=== PATIENT | male | born 1980 | race Caucasian/White ===

== ENCOUNTER → 2018-10-22 | Day surgery (SDC) | payer OTHER ==
[2018-10-15 10:17] LABS: BASOPHILS % 0.3 % (0.0-1.0); EOSINOPHILS # (AUTO) 0.2 (0.0-0.4); EOSINOPHILS % 2.2 % (0.0-6.0); HEMATOCRIT 47.2 % (38.2-49.6); HEMOGLOBIN 16.6 g/dL (14.0-18.0); LYMPHOCYTES # (AUTO) 3.1 (1.0-3.2); LYMPHOCYTES % 34.3 % (18.0-39.1); MEAN CORPUSCULAR HEMOGLOBIN 31.9 pg (28-32); MEAN CORPUSCULAR HGB CONC 35.2 g/dL (31-35); MEAN CORPUSCULAR VOLUME 90.6 fL (81-99); MONOCYTES # (AUTO) 0.9 (0.2-0.8); MONOCYTES % 10.3 % (4.4-11.3); NEUTROPHILS # (AUTO) 4.7 (2.1-6.9); NEUTROPHILS % 52.7 % (38.7-80.0); PLATELET COUNT 209 x10e3/uL (140-360); RED BLOOD COUNT 5.21 x10e6/uL (4.3-5.7); RED CELL DISTRIBUTION WIDTH 12.1 % (11.7-14.4)
[~2018-10-22] MED LIST: BUPIVACAINE 0.25% 30ML SDV INJ ONE; BUPIVACAINE/EPINEPHRINE 0.25% 10 ML SDV INJ ONE; CRESTOR10 MG PO; DEXAMETHASONE SOD PHOS INJ 4 MG/ML VIAL ONE; FENTANYL CITRATE/PF 100MCG/2 ML INJ ONE; HYDROCODONE/APAP 7.5MG-325MG 1 EA TAB ONE; LIDOCAINE HCL 2% LOCAL INJ 5 ML SDV VIAL INJ ONE; MIDAZOLAM HCL 2 MG/2 ML VIAL ONE; MORPHINE SULFATE INJ 4 MG/ML INJ ONE; ONDANSETRON HCL INJ 2 MG/ML VIAL ONE; PROPOFOL IV EMULSION 10 MG/ML 20 ML VIAL ONE; ROCURONIUM BROMIDE 10 MG/ML 5ML VIAL ONE; SEVOFLURANE INHAL SOLN 250 ML PEN BTL ONE; ULORIC80 MG PO
--- OUTSIDE RECORDS SUMMARY | 2018-10-22 09:29 | XMS REPORT | Continuity of Care Document ---
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 Luque MD [facility] Call back [id number] 03/27/2016 03/27/2016 2.16.840.1.997736.4.391.11.99092 Bam Luque MD [facility] Call back [id number] 03/27/2016 03/27/2016 2.16.840.1.507611.4.391.11.36267 Bam Luque MD [facility] Call back [id number] 03/27/2016 03/27/2016 2.16.840.1.731791.4.391.11.91421 Bam Luque MD [facility] Call back [id number] 03/27/2016 03/27/2016 2.16.840.1.914172.4.391.11.07004 Bam Luque MD [facility] Call back [id number] 03/27/2016 03/27/2016 2.16.840.1.449962.4.391.11.99427 Bam Luque MD [facility] Call back [id number] 03/27/2016 03/27/2016 2.16.840.1.255256.4.391.11.84241 Bam Luque MD [facility] Blood pressure [id number] 03/28/2016 03/28/2016 2.16.840.1.191348.4.391.11.32258 Bam Luque MD [facility] Blood pressure [id number] 03/28/2016 03/28/2016 2.16.840.1.433999.4.391.11.37555 Bam Luque MD [facility] Blood pressure [id number] 03/28/2016 03/28/2016 2.16.840.1.656775.4.391.11.55951 Bam Luque MD [facility] Blood pressure [id number] 03/28/2016 03/28/2016 2.16.840.1.670320.4.391.11.01008 Bam Luque MD [facility] Blood pressure [id number] 03/28/2016 03/28/2016 2.16.840.1.398801.4.391.11.61010 Bam Luque MD [facility] Blood pressure [id number] 03/28/2016 03/28/2016 2.16.840.1.541089.4.391.11.06069 Bam Luque MD [facility] Blood pressure [id number] 03/28/2016 03/28/2016 2.16.840.1.147514.4.391.11.23364 Bam Luque MD [facility] Blood pressure [id number] 03/28/2016 03/28/2016 2.16.840.1.904907.4.391.11.00523 Bam Luque MD [facility] Blood pressure [id number] 03/28/2016 03/28/2016 2.16.840.1.690103.4.391.11.32731 Bam Luque MD [facility] Blood pressure [id number] 03/28/2016 03/28/2016 2.16.840.1.431001.4.391.11.78603 Bam Luque MD [facility] Other [id number] 04/16/2016 04/16/2016 2.16.840.1.581033.4.391.11.22674 Bam Luque MD [facility] Other [id number] 04/16/2016 04/16/2016 2.16.840.1.261968.4.391.11.66251 Bam Luque MD [facility] Other [id number] 04/16/2016 04/16/2016 2.16.840.1.698255.4.391.11.59863 Bam Luque MD [facility] Other [id number] 04/16/2016 04/16/2016 2.16.840.1.168384.4.391.11.30187 Bam Luque MD [facility] Other [id number] 04/16/2016 04/16/2016 2.16.840.1.578117.4.391.11.72127 Bam Luque MD [facility] Other [id number] 04/16/2016 04/16/2016 2.16.840.1.012398.4.391.11.27444 Bam Luque MD [facility] Other [id number] 04/16/2016 04/16/2016 2.16.840.1.010709.4.391.11.60346 Bam Luque MD [facility] Other [id number] 04/16/2016 04/16/2016 2.16.840.1.481621.4.391.11.73639 [facility] Outpatient [id number] Hunter Hernandez 04/19/2016 04/20/2016 [facility] OP Therapy Patients [id number] Hunter Tannern 05/12/2016 06/11/2016 [facility] Bam Luque MD [facility] Refill [id number] 05/13/2016 05/13/2016 2.16.840.1.479766.4.391.11.98521 Bam Luque MD [facility] Refill [id number] 05/13/2016 05/13/2016 2.16.840.1.384424.4.391.11.99163 Bam Luque MD [facility] Refill [id number] 05/13/2016 05/13/2016 2.16.840.1.550334.4.391.11.49989 Bam Luque MD [facility] Refill [id number] 05/13/2016 05/13/2016 2.16.840.1.986807.4.391.11.04652 Bam Luque MD [facility] Refill [id number] 05/13/2016 05/13/2016 2.16.840.1.949592.4.391.11.78732 Bam Luque MD [facility] Refill [id number] 05/13/2016 05/13/2016 2.16.840.1.362089.4.391.11.12806 Bam Luque MD [facility] follow up labs [id number] 07/17/2016 07/17/2016 2.16.840.1.063444.4.391.11.01598 Bam Luque MD [facility] follow up labs [id number] 07/17/2016 07/17/2016 2.16.840.1.128432.4.391.11.70382 Bam Luque MD [facility] follow up labs [id number] 07/17/2016 07/17/2016 2.16.840.1.973894.4.391.11.28051 Bam Luque MD [facility] follow up labs [id number] 07/17/2016 07/17/2016 2.16.840.1.610800.4.391.11.36671 Bam Luque MD [facility] follow up labs [id number] 07/17/2016 07/17/2016 2.16.840.1.426998.4.391.11.00121 Bam Luque MD [facility] Blood pressure flow sheet [id number] 2016 2016 2.16.840.1.839210.4.391.11.83151 Bam Luque MD [facility] Blood pressure flow sheet [id number] 08/15/2016 08/15/2016 2.16.840.1.322193.4.391.11.48506 Bam Luque MD [facility] Blood pressure flow sheet [id number] 08/15/2016 08/15/2016 2.16.840.1.132758.4.391.11.09473 Bam Luque MD [facility] Blood pressure flow sheet [id number] 08/15/2016 08/15/2016 2.16.840.1.425813.4.391.11.91961 Bam Luque MD [facility] Labs [id number] 10/08/2016 10/08/2016 2.16.840.1.004472.4.391.11.11172 Bam Luque MD [facility] Labs [id number] 10/08/2016 10/08/2016 2.16.840.1.195569.4.391.11.34648 Bam Luque MD [facility] Labs [id number] 10/08/2016 10/08/2016 2.16.840.1.051878.4.391.11.28036 Bam Luque MD [facility] follow up labs [id number] 10/20/2016 10/20/2016 2.16.840.1.746450.4.391.11.83091 Bam Luque MD [facility] follow up labs [id number] 10/20/2016 10/20/2016 2.16.840.1.075049.4.391.11.48167 Bam Luque MD [facility] prescription [id number] 10/22/2016 10/22/2016 2.16.840.1.903003.4.391.11.06001 Procedures Procedure Code Date Perfomer Comments Source
--- OUTSIDE RECORDS SUMMARY | 2018-10-22 09:30 | XMS REPORT ---
Author Author Bam Luque [facility] eClinicalWorks Address Unknown Phone Unavailable Care Team Providers Care Intake Specialist Name Role Phone Bam Luque CP Unavailable Allergies, Adverse Reactions, Alerts Substance Reaction Event Type N.K.D.A. 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 Jul 13, 2012 Active Problem Hyperglycemia (Other abnormal blood chemistry) 790.6 Jul 13, 2012 Active Problem Left knee pain 719.46 Jul 13, 2012 Active Problem ADD (Attention 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 mention of hyperactivity) 314.00 Jun 29, 2012 Active Problem Hyperlipidemia E78.5 Active Problem Annual Physical (Routine general medical examination at health care facility) V70.0 Jun 29, 2012 Active Problem Tinea pedis B35.3 Active Problem Acute gouty arthropathy 274.01 Jun 23, 2012 Active Problem Onychomycosis B35.1 Active Problem Abnormal liver enzymes R74.8 Active Problem Fatty liver K76.0 Active Problem Essential hypertension I10 Active Problem Obesity (BMI 35.0-39.9 without comorbidity) E66.9 Active Problem Other chronic nonalcoholic liver disease 571.8 Active Problem Pain in joint, multiple sites 719.49 Active Assessment Mixed hyperlipidemia E78.2 Active Problem Mixed hyperlipidemia E78.2 Active Problem Nonspecific urethritis 099.40 Jun 04, 2012 Active Problem Obesity (BMI 35.0-39.9 without comorbidity) E66.01 Active Problem Hypertension I10 Active Problem Obesity E66.9 Active Problem Gout M10.9 Active Problem Fracture of one or more phalanges of foot 826 Sep 08, 2013 Active Problem Essential hypertension, benign 401.1 Active Problem Rhomboid muscle pain 729.1 Jul 25, 2013 Active Problem Pain in soft tissues of limb 729.5 Active Problem Essential hypertension, benign 401.1 March 02, 2014 Active Problem Night sweats (Generalized hyperhidrosis) 780.8 Active Problem Toe pain 729.5 Sep 08, 2013 Active Problem Mixed hyperlipidemia 272.2 Active Problem Night sweats (Generalized hyperhidrosis) 780.8 April 18, 2014 Active Problem ADD (Attention 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 mention of hyperactivity) 314.00 Active Problem Extreme obesity 278.01 April 03, 2014 Active Problem Acute gouty arthropathy 274.01 Active Problem 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 Problem BMI >30 (Morbid obesity) 278.01 Active Medications Medication Code System Code Instructions Start Date End Date Status Dosage Lisinopril [facility] [address]-47 10 MG Orally Once a day Aug 10, 2015 Active 1 tablet Crestor [facility] [address]-56 40 MG Orally Once a day Jul 17, 2016 Active 1 tablet Zetia [facility] [address]-73 10 MG Orally Once a day February 10, 2017 Active 1 tablet Vimovo [facility] [address]-10 500-20 MG by mouth Twice a day with food for joint pain Jun 20, 2016 Active 1 tablet prn Vital Signs Date/Time: February 10, 2017 Weight 224 lbs Height 68 in Temperature 98.0 F Cardiac Monitoring Heart Rate 95 /min BMI 34.06 Index Results No Known Results Summary Purpose eClinicalWorks Submission
--- OUTSIDE RECORDS SUMMARY | 2018-10-22 09:30 | XMS REPORT | Summary of Care ---
Author Organization Unknown Address Unknown Phone Unavailable Encounter HQ Trinhntr_loni(ITZ) [id number] Date(s): 07/01/14 - 07/01/14 [facility] [address] Discharge Disposition: Home Physician Attending: Arsh Patel MD Physician_Referring: Arsh Patel MD Reason for Visit ABDOMINAL PAIN Problem List No data available for this section Allergies, Adverse Reactions, Alerts No data available for this section Medications No data available for this section Medications Administered During Your Visit No data available for this section Immunizations No data available for this section
--- OUTSIDE RECORDS SUMMARY | 2018-10-22 09:30 | XMS REPORT ---
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 Jul 13, 2012 Active Problem Toe pain 729.5 Sep 08, 2013 Active Problem ADD (Attention 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 mention of hyperactivity) 314.00 Jun 29, 2012 Active Problem Nonspecific urethritis 099.40 Jun 04, 2012 Active Problem Essential hypertension, benign 401.1 March 02, 2014 Active Problem Other enthesopathy of knee 726.69 Jul 13, 2012 Active Problem Acute gouty arthropathy 274.01 Jun 23, 2012 Active Problem Annual Physical (Routine general medical examination at health care facility) V70.0 Jun 29, 2012 Active Problem Fracture of one or more phalanges of foot 826 Sep 08, 2013 Active Problem Mixed hyperlipidemia 272.2 Active Problem Nonspecific abnormal results of liver function study 794.8 Jul 13, 2012 Active Problem Tinea pedis B35.3 Active Problem Hyperglycemia (Other abnormal blood chemistry) 790.6 Jul 13, 2012 Active Problem Onychomycosis B35.1 Active Problem Fatty liver K76.0 Active Problem Abnormal liver enzymes R74.8 Active Problem Obesity (BMI 35.0-39.9 without comorbidity) E66.9 Active Problem Obesity E66.9 Active Problem Acute gouty arthropathy 274.01 Active Problem Mixed hyperlipidemia 272.2 February 25, 2013 Active Problem Mixed hyperlipidemia E78.2 Active Problem Night sweats (Generalized hyperhidrosis) 780.8 April 18, 2014 Active Problem Hyperlipidemia E78.5 Active Problem Hypertension I10 Active Problem Gout M10.9 Active Problem Obesity (BMI 35.0-39.9 without comorbidity) E66.01 Active Problem Rhomboid muscle pain 729.1 Jul 25, 2013 Active Problem Night sweats (Generalized hyperhidrosis) 780.8 Active Problem Pain in joints 719.49 Jun 23, 2012 Active Problem Other chronic nonalcoholic liver disease 571.8 Active Problem Extreme obesity 278.01 April 03, 2014 Active Problem Pain in soft tissues of limb 729.5 Active Problem Fatty liver disease, nonalcoholic 571.8 Jul 27, 2012 Active Problem Pain in joint, multiple sites 719.49 Active Assessment Mixed hyperlipidemia E78.2 Active Problem BMI >30 (Morbid obesity) 278.01 Active Problem Left knee pain 719.46 Jul 13, 2012 Active Problem 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
--- OUTSIDE RECORDS SUMMARY | 2018-10-22 09:30 | XMS REPORT | Summary of Care ---
Author Author [facility] Address Unknown Phone Unavailable Encounter HQ Encntr_alias(FIN) [id number] Date(s): 05/12/16 - 06/10/16 [facility] Discharge Disposition: Home or Self Care Attending Physician: Hunter Hernandez Vital Signs No data available for this section Problem List Condition Effective Dates Status Health Status Informant Gout(Confirmed) Resolved HTN Resolved (hypertension)(Confi rmed) Hyperlipemia(Confirm Resolved ed) Allergies, Adverse Reactions, Alerts Substance Reaction Severity Status NKDA Active Medications No data available for this section Results No data available for this section Immunizations No data available for this section Procedures No data available for this section Social History Social History Type Response Smoking Status Never smoker; Exposure to Tobacco Smoke None; Cigarette Smoking Last 365 Days No; Reg Smoking Cessation Counseling No Assessment and Plan No data available for this section
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
--- OUTSIDE RECORDS SUMMARY | 2018-10-22 09:30 | XMS REPORT ---
Author Author Bam Luque [facility] eClinicalWorks Address Unknown Phone Unavailable Care Team Providers Care Underwriting Clerk Name Role Phone Bam Luque CP Unavailable Allergies No Known Allergies Problems Problem Type Condition Code Onset Dates Condition Status Problem Pain in joints 719.49 Jun 23, 2012 Active Problem Rhomboid muscle pain 729.1 Jul 25, 2013 Active Problem Fatty liver disease, nonalcoholic 571.8 Jul 27, 2012 Active Problem Mixed hyperlipidemia 272.2 February 25, 2013 Active Problem Other enthesopathy of knee 726.69 Jul 13, 2012 Active Problem Nonspecific abnormal results of liver function study 794.8 Jul 13, 2012 Active Problem Familial hyperlipoproteinemia, 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 Jul 13, 2012 Active Problem Hyperglycemia (Other abnormal blood chemistry) 790.6 Jul 13, 2012 Active Problem Left knee pain 719.46 Jul 13, 2012 Active Problem Acute gouty arthropathy 274.01 Active Problem ADD (Attention 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 mention of hyperactivity) 314.00 Jun 29, 2012 Active Problem Hyperlipidemia E78.5 Active Problem Annual Physical (Routine general medical examination at health care facility) V70.0 Jun 29, 2012 Active Problem Tinea pedis B35.3 Active Problem Fatty liver K76.0 Active Problem Onychomycosis B35.1 Active Problem Obesity (BMI 35.0-39.9 without comorbidity) E66.9 Active Problem Obesity E66.9 Active Problem Pain in joint, multiple sites 719.49 Active Problem Nonspecific urethritis 099.40 Jun 04, 2012 Active Problem Mixed hyperlipidemia E78.2 Active Problem Acute gouty arthropathy 274.01 Jun 23, 2012 Active Problem Hypertension I10 Active Problem Abnormal liver enzymes R74.8 Active Problem Gout M10.9 Active Problem Obesity (BMI 35.0-39.9 without comorbidity) E66.01 Active Problem Toe pain 729.5 Sep 08, 2013 Active Problem Mixed hyperlipidemia 272.2 Active Problem Fracture of one or more phalanges of foot 826 Sep 08, 2013 Active Problem Essential hypertension, benign 401.1 Active Problem Extreme obesity 278.01 April 03, 2014 Active Problem Other chronic nonalcoholic liver disease 571.8 Active Problem Essential hypertension, benign 401.1 March 02, 2014 Active Problem Night sweats (Generalized hyperhidrosis) 780.8 Active Problem BMI >30 (Morbid obesity) 278.01 Active Problem Night sweats (Generalized hyperhidrosis) 780.8 April 18, 2014 Active Problem ADD (Attention 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 mention of hyperactivity) 314.00 Active Problem Pain in soft tissues of limb 729.5 Active Problem 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
--- OUTSIDE RECORDS SUMMARY | 2018-10-22 09:30 | XMS REPORT ---
Author Author Bam Luque [facility] eClinicalWorks Address Unknown Phone Unavailable Care Team Providers Care Body Sander Name Role Phone Bam Luque CP Unavailable [...] in joint, multiple sites 719.49 Active Problem Mixed hyperlipidemia E78.2 Active Problem [...] Start Date End Date Status Dosage Lisinopril [facility] [address]-06 10 MG Orally Once a day Aug 10, 2015 Active 1 tablet Results No Known Results Summary Purpose eClinicalWorks Submission
--- OUTSIDE RECORDS SUMMARY | 2018-10-22 09:30 | XMS REPORT ---
Author Author Bam Luque [facility] eClinicalWorks Address Unknown Phone Unavailable Care Team Providers Care Superannuation Clerk Name Role Phone Bam Luque CP [...] Mixed hyperlipidemia 272.2 February 25, 2013 Active Assessment Abnormal liver enzymes R74.8 Active Problem Mixed hyperlipidemia E78.2 Active Problem Night sweats (Generalized hyperhidrosis) 780.8 April 18, 2014 Active Assessment Fatty liver K76.0 Active Problem Hyperlipidemia E78.5 Active Problem Hypertension [...] in joint, multiple sites 719.49 Active Assessment Hyperlipidemia E78.5 Active Problem BMI >30 (Morbid obesity) 278.01 Active Problem Left knee pain 719.46 Jul 13, 2012 Active Problem 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 Problem Essential hypertension, benign 401.1 Active Problem ADD (Attention 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 mention of hyperactivity) 314.00 Active Medications Medication Code System Code Instructions Start Date End Date Status Dosage Uloric [facility] 53060488598 80 MG Orally Once a day Active 1 tablet Crestor [facility] 11497399424 40 mg Orally Once a day Jul 17, 2016 Active 1 tablet Zetia [facility] 89236248147 10 mg Orally Once a day February 10, 2017 Active 1 tablet Vimovo [facility] 78475701500 500-20 MG by mouth Twice a day with food for joint pain Jun 20, 2016 Active 1 tablet prn Lisinopril [facility] 08181166080 10 MG Orally Once a day Aug 10, 2015 May 19, 2017 Active 1 tablet Vital Signs Date/Time: Aug 31, 2017 Weight 222.8 lbs Height 68 in Temperature 97.3 F BMI 33.87 Index Results No Known Results Summary Purpose eClinicalWorks Submission
--- OUTSIDE RECORDS SUMMARY | 2018-10-22 09:30 | XMS REPORT | Summary of Care ---
Author Organization Unknown Address Unknown Phone Unavailable Encounter HQ Trinhntr_loni([facility]) [id number] Date(s): 02/27/14 - 03/28/14 [facility] Discharge Disposition: Home Physician Attending: Hunter Hernandez Reason for Visit RIGHT SHOULDER(POST OP 02.09.14) Problem List No data available for this section Allergies, Adverse Reactions, Alerts No data available for this section Medications No data available for this section Medications Administered During Your Visit No data available for this section Immunizations No data available for this section
--- OUTSIDE RECORDS SUMMARY | 2018-10-22 09:30 | XMS REPORT | Summary of Care ---
Author Organization Unknown Address Unknown Phone Unavailable Encounter HQ Encntr_loni([facility]) [id number] Date(s): 03/31/14 - 04/29/14 [facility] Discharge Disposition: Home Physician Attending: Hunter Hernandez Reason for Visit RIGHT SHOULDER POST OP 4.08.15 Problem List No data available for this section Allergies, Adverse Reactions, Alerts No data available for this section Medications No data available for this section Medications Administered During Your Visit No data available for this section Immunizations No data available for this section
--- OUTSIDE RECORDS SUMMARY | 2018-10-22 09:30 | XMS REPORT ---
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 Problem Essential hypertension, benign 401.1 Active Problem ADD (Attention 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 mention of hyperactivity) 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 Active Medications Medication Code System Code Instructions Start Date End Date Status Dosage Cefdinir [facility] 95160514942 300 MG Orally daily January 26, 2018 February 05, 2018 Active 2 capsules Zetia [facility] 21436350240 10 mg Orally Once a day February 10, 2017 Active 1 tablet Lisinopril [facility] 39048178469 10 mg Orally Once a day Aug 10, 2015 Active 1 tablet Uloric [facility] 06807072354 80 MG Orally Once a day Active 1 tablet Crestor [facility] 58997588102 40 mg Orally Once a day Jul 17, 2016 Active 1 tablet Vimovo [facility] 90106979060 500-20 MG by mouth Twice a day with food for joint pain Jun 20, 2016 Active 1 tablet prn Vital Signs Date/Time: January 26, 2018 Weight 221.8 lbs Height 68 in Temperature 97.7 F Cardiac Monitoring Heart Rate 79 /min BMI 33.72 Index Results No Known Results Summary Purpose eClinicalWorks Submission
--- OUTSIDE RECORDS SUMMARY | 2018-10-22 09:30 | XMS REPORT | Summary of Care ---
Author Author [facility] Organization [facility] Address Unknown Phone Unavailable Encounter HQ Herbie_loni([facility]) [id number] Date(s): 04/19/16 - 04/19/16 [facility] [address] [place] [address]- Discharge Disposition: Home Attending Physician: Hunter Hernandez Referring Physician: Hunter Hernandez Vital Signs No data [...]
--- OUTSIDE RECORDS SUMMARY | 2018-10-22 09:30 | XMS REPORT | Summary of Care ---
Author Organization Unknown Address Unknown Phone Unavailable Encounter HQ Chanteller_loni([facility]) [id number] Date(s): 08/29/14 - 08/29/14 [facility] [address] Discharge Disposition: Home Physician Attending: Gerhard Bedolla MD Reason for Visit 720.2 Problem List No data available for this section Allergies, Adverse Reactions, Alerts No data available for this section Medications No data available for this section Medications Administered During Your Visit No data available for this section Immunizations No data available for this section
--- OUTSIDE RECORDS SUMMARY | 2018-10-22 09:30 | XMS REPORT ---
Author Author Bam Luque [facility] eClinicalWorks Address Unknown Phone Unavailable Care Team Providers Care Boxing Trainer Name Role Phone Bam Luque CP Unavailable [...] Nonspecific urethritis 099.40 Jun 04, 2012 Active Assessment Hyperlipidemia E78.5 Active Problem Mixed hyperlipidemia E78.2 Active Problem Acute gouty arthropathy 274.01 Jun 23, 2012 Active Assessment Abnormal liver enzymes R74.8 Active Problem Hypertension I10 Active Assessment Fatty liver K76.0 Active Problem Abnormal liver [...] Problem Night sweats (Generalized hyperhidrosis) 780.8 Active Assessment Hypertension I10 Active Problem BMI >30 (Morbid obesity) 278.01 Active Problem Night sweats (Generalized hyperhidrosis) 780.8 April 18, 2014 Active Problem ADD (Attention 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 mention of hyperactivity) 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 Active Problem Pain in soft tissues of limb 729.5 Active Problem 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 Medications Medication Code System Code Instructions Start Date End Date Status Dosage Crestor [facility] [address]-77 40 MG Orally Once a day Jul 17, 2016 May 19, 2017 Active 1 tablet Vimovo [facility] [address]-48 500-20 MG by mouth Twice a day with food for joint pain Jun 20, 2016 Active 1 tablet prn Zetia [facility] [address]-77 10 MG Orally Once a day February 10, 2017 May 19, 2017 Active 1 tablet Lisinopril [facility] [address]-50 10 MG Orally Once a day Aug 10, 2015 May 19, 2017 Active 1 tablet Uloric [facility] [address]-90 80 MG Orally Once a day Active 1 tablet Vital Signs Date/Time: May 26, 2017 Weight 230 lbs Height 68 in Temperature 97.5 F Cardiac Monitoring Heart Rate 86 /min BMI 34.97 Index Results No Known Results Summary Purpose eClinicalWorks Submission
--- OUTSIDE RECORDS SUMMARY | 2018-10-22 09:31 | XMS REPORT ---
Author Author Bam Luque Organization eClinicalWorks Address Unknown Phone Unavailable Care Team Providers Care Bricklayer Paving Brick Name Role Phone Bam Luque CP Unavailable Allergies, Adverse Reactions, Alerts Substance Reaction Event Type N.K.D.A. 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, 2012 Active Problem Essential hypertension, benign 401.1 March 02, 2014 Active Problem ADD (Attention 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 mention of hyperactivity) 314.00 Jun 29, 2012 Active Problem Other enthesopathy of knee 726.69 Jul 13, 2012 Active Problem Acute gouty arthropathy 274.01 Jun 23, 2012 Active Problem Annual Physical (Routine general medical examination at health care facility) V70.0 Jun 29, 2012 Active Problem Fracture of one or more phalanges of foot 826 Sep 08, 2013 Active Problem Nonspecific abnormal results of liver function study 794.8 Jul 13, 2012 Active Problem Tinea pedis B35.3 Active Problem Hyperglycemia (Other abnormal blood chemistry) 790.6 Jul 13, 2012 Active Problem Onychomycosis B35.1 Active Problem Night sweats (Generalized hyperhidrosis) 780.8 April 18, 2014 Active Problem Abnormal liver enzymes R74.8 Active Problem Hypertension I10 Active Problem Fatty liver K76.0 Active Problem Obesity (BMI 35.0-39.9 without comorbidity) E66.9 Active Problem Mixed hyperlipidemia E78.2 Active Problem Pain in soft tissues of limb 729.5 Active Problem Acute gouty arthropathy 274.01 Active Problem Umbilical hernia without obstruction and without gangrene K42.9 Active Problem Mixed hyperlipidemia 272.2 February 25, 2013 Active Assessment Mixed hyperlipidemia E78.2 Active Problem Obesity (BMI 35.0-39.9 without comorbidity) E66.01 Active Assessment Hypertension I10 Active Problem Hyperlipidemia E78.5 Active Assessment Umbilical hernia without obstruction and without gangrene K42.9 Active Problem Obesity E66.9 Active Problem Gout M10.9 Active Problem Pain in joints 719.49 Jun 23, 2012 Active Problem Other chronic nonalcoholic liver disease 571.8 Active Problem Toe pain 729.5 Sep 08, 2013 Active Problem Essential hypertension, benign 401.1 Active Problem Fatty liver disease, nonalcoholic 571.8 Jul 27, 2012 Active Problem Pain in joint, multiple sites 719.49 Active Problem Rhomboid muscle pain 729.1 Jul 25, 2013 Active Problem Night sweats (Generalized hyperhidrosis) 780.8 Active Problem Left knee pain 719.46 Jul 13, 2012 Active Problem 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 Problem Extreme obesity 278.01 April 03, 2014 Active Problem Mixed hyperlipidemia 272.2 Active Problem ADD (Attention 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 mention of hyperactivity) 314.00 Active Problem BMI >30 (Morbid obesity) 278.01 Active Medications Medication Code System Code Instructions Start Date End Date Status Dosage Crestor [facility] [address]-71 80 mg Orally Once a day Jul 17, 2016 Active 1 tablet Zetia [facility] 75335237645 10 mg Orally Once a day February 10, 2017 Active 1 tablet Vimovo [facility] 10807185071 500-20 MG by mouth Twice a day with food for joint pain Jun 20, 2016 Active 1 tablet prn Uloric [facility] 39238070692 80 MG Orally Once a day Active 1 tablet Lisinopril [facility] 63795175856 10 mg Orally Once a day Aug 10, 2015 Inactive 1 tablet Vital Signs Date/Time: Sep 02, 2018 Weight 233 lbs Height 68 in Temperature 98.3 F Cardiac Monitoring Heart Rate 77 /min BMI 35.42 Index Results No Known Results Summary Purpose eClinicalWorks Submission
--- OUTSIDE RECORDS SUMMARY | 2018-10-22 09:31 | XMS REPORT ---
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
--- OUTSIDE RECORDS SUMMARY | 2018-10-22 09:31 | XMS REPORT ---
Author Author Bam Luque [facility] eClinicalWorks Address Unknown Phone Unavailable Care Team Providers Care Freight Flagman Name Role Phone Bam Luque CP Unavailable [...]
--- OUTSIDE RECORDS SUMMARY | 2018-10-22 09:31 | XMS REPORT ---
Author Author Bam Luque Organization eClinicalWorks Address Unknown Phone Unavailable Care Team Providers Care Rounder Hand Name Role Phone Bam Luque CP Unavailable [...] hyperlipidemia 272.2 February 25, 2013 Active Problem Obesity (BMI 35.0-39.9 without comorbidity) E66.01 Active Problem Hyperlipidemia E78.5 Active Problem Obesity E66.9 Active Problem Gout [...] Status Dosage Crestor [facility] 55721405734 40 mg Orally Once a day Sep 08, 2018 Inactive 2 tablet(s) Atorvastatin Calcium [facility] 27998427980 80 mg Orally Once a day Sep 09, 2018 Active 1 tablet Results No Known Results Summary Purpose eClinicalWorks Submission
--- OUTSIDE RECORDS SUMMARY | 2018-10-22 09:31 | XMS REPORT ---
Author Author Bam Luque Organization eClinicalWorks Address Unknown Phone Unavailable Care Team Providers Care Slot Floor Attendant Name Role Phone Bam Luque CP Unavailable [...] Start Date End Date Status Dosage Crestor [facility] [address]-49 80 mg Orally Once a day Jul 17, 2016 Inactive 1 tablet Crestor [facility] 92825167091 40 mg Orally Once a day Sep 08, 2018 Active 2 tablet(s) Results No Known Results Summary Purpose eClinicalWorks Submission
--- OUTSIDE RECORDS SUMMARY | 2018-10-22 09:31 | XMS REPORT ---
Author Author Bam Luque [facility] eClinicalWorks Address Unknown Phone Unavailable Care Team Providers Care Precision Lens Centerer And Edger Name Role Phone Bam Luque Unavailable Allergies, Adverse Reactions, Alerts Substance Reaction Event Type N.K.D.A. Info Not Available Non Drug Allergy Encounters Encounter Location Date Blood pressure Bam Luque MD [facility] March 28, 2016 Follow up labs Bam Luque MD [facility] March 25, 2016 Labs Bam Luque MD [facility] March 23, 2016 Prescription Bam Luque MD [facility] March 25, 2016 Call back Bam Luque MD [facility] March 27, 2016 Problems Problem Type Condition ICD-9 Code Onset Dates Condition Status Problem Toe pain 729.5 Sep 08, 2013 Active Problem Essential hypertension, benign 401.1 March 02, 2014 Active Problem Rhomboid muscle pain 729.1 Jul 25, 2013 Active Problem Fracture of one or more phalanges of foot 826 Sep 08, 2013 Active Problem Pain in joints 719.49 Jun 23, 2012 Active Problem Mixed hyperlipidemia 272.2 February 25, 2013 Active Problem Fatty liver disease, nonalcoholic 571.8 Jul 27, 2012 Active Problem Other enthesopathy of knee 726.69 Jul 13, 2012 Active Problem Nonspecific abnormal results of liver function study 794.8 Jul 13, 2012 Active Problem 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 Problem Familial hyperlipoproteinemia, 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 Jul 13, 2012 Active Problem BMI >30 (Morbid obesity) 278.01 Active Problem Hyperglycemia (Other abnormal blood chemistry) 790.6 Jul 13, 2012 Active Problem ADD (Attention 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 mention of hyperactivity) 314.00 Active Problem Hyperlipidemia E78.5 Active Problem Acute gouty arthropathy 274.01 Active Problem Obesity (BMI 35.0-39.9 without comorbidity) E66.01 Active Problem Hypertension I10 Active Problem Annual Physical (Routine general medical examination at health care facility) V70.0 Jun 29, 2012 Active Problem ADD (Attention 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 mention of hyperactivity) 314.00 Jun 29, 2012 Active Problem Gout M10.9 Active Problem Left knee pain 719.46 Jul 13, 2012 Active Problem Onychomycosis B35.1 Active Problem Tinea pedis B35.3 Active Problem Abnormal liver enzymes R74.8 Active Problem Fatty liver K76.0 Active Problem Night sweats (Generalized hyperhidrosis) 780.8 April 18, 2014 Active Problem Pain in joint, multiple sites 719.49 Active Problem Extreme obesity 278.01 April 03, 2014 Active Problem Other chronic nonalcoholic liver disease 571.8 Active Assessment Abnormal liver enzymes R74.8 Active Problem Acute gouty arthropathy 274.01 Jun 23, 2012 Active Assessment Hyperlipidemia E78.5 Active Problem Nonspecific urethritis 099.40 Jun 04, 2012 Active Problem Essential hypertension, benign 401.1 Active Assessment Obesity (BMI 35.0-39.9 without comorbidity) E66.01 Active Problem Pain in soft tissues of limb 729.5 Active Problem Night sweats (Generalized hyperhidrosis) 780.8 Active Problem Mixed hyperlipidemia 272.2 Active Medications Medication Code System Code Instructions Start Date End Date Status Dosage Crestor [facility] [address]-17 20 mg Orally Once a day March 25, 2016 Active 1 tablet Colcrys [facility] [address]-77 0.6 MG Orally tid prn Active 1 tablet Crestor [facility] [address]-31 10 mg Orally once every night Aug 10, 2015 Inactive 1 tablet Uloric [facility] [address]-54 80 mg by mouth Once a day with food Active 1 tablet Lisinopril [facility] [address]-85 10 mg Orally Once a day Aug 10, 2015 Active 1 tablet Social History Social History Element Qualifiers Date Reported Supplements . Do you use supplements No March 25, 2016 Tobacco Use: . Are you a: former smoker quit 11/2013March 25, 2016 Caffeine intake? . Status: Yes, What type: Soft Drinks Redbull (1 a day) March 25, 2016 Do you drink alcohol? . Status: No March 25, 2016 Vital Signs Date/Time: March 25, 2016 Weight 230 lbs Height 68 in Temperature 98.7 F Cardiac Monitoring Heart Rate 98 /min Summary Purpose eClinicalWorks Submission
--- OUTSIDE RECORDS SUMMARY | 2018-10-22 09:31 | XMS REPORT ---
Author Author Ivon Diaz [facility] eClinicalWorks Address Unknown Phone Unavailable Care Team Providers Care Stockroom Selector Name Role Phone Ivon Diaz Unavailable Allergies, Adverse Reactions, Alerts Substance Reaction Event Type N.K.D.A. Info Not Available Non Drug Allergy Encounters Encounter Location Date Blood pressure Bam Luque MD [facility] March 28, 2016 Follow up labs Bam Luque MD [facility] March 25, 2016 Other Bam Luque MD [facility] April 16, 2016 Gout flare-up Bam Luque MD [facility] March 07, 2016 Labs Bam Luque MD [facility] March 23, 2016 Prescription Bam Luque MD [facility] March 25, 2016 Call back Bam Luque MD [facility] March 27, 2016 Problems Problem Type [...] chronic nonalcoholic liver disease 571.8 Active Assessment Knee pain, left M25.562 Active Problem Acute gouty arthropathy 274.01 Jun 23, 2012 Active Assessment Acute gout M10.9 Active Problem Nonspecific urethritis 099.40 Jun 04, 2012 Active Problem Essential hypertension, benign 401.1 Active Problem Pain in soft tissues of limb 729.5 Active Problem Night sweats (Generalized hyperhidrosis) 780.8 Active Problem Mixed hyperlipidemia 272.2 Active Medications Medication Code System Code Instructions Start Date End Date Status Dosage Lisinopril [email or web address] [address]-21 10 mg Orally Once a day Aug 10, 2015 Active 1 tablet Colcrys [employer] [address]-35 0.6 MG Orally tid prn Active 1 tablet Uloric [employer] [address]-40 80 mg by mouth Once a day with food Active 1 tablet PredniSONE [employer] [address]-27 20 mg Orally bid for 3 days, then one a day for 4 days, then 1/2 tablet a day for 6 days March 07, 2016 Active 1 tablet with food or milk Crestor [employer] [address]-58 10 mg Orally once every night Aug 10, 2015 Active 1 tablet [place] [employer] [address]-71 5-325 MG PO bid prn severe pain March 05, 2015 Active 1 tablet Social History Social [...] March 25, 2016 Vital Signs Date/Time: March 07, 2016 Weight 230 lbs Height 68 in Temperature 99.4 F Cardiac Monitoring Heart Rate 87 /min Summary Purpose eClinicalWorks Submission
--- OUTSIDE RECORDS SUMMARY | 2018-10-22 09:31 | XMS REPORT ---
Author Author Bam Luque [facility] eClinicalWorks Address Unknown Phone Unavailable Care Team Providers Care Stitcher Feeder Name Role Phone Bam Luque Unavailable Encounters Encounter Location Date Labs Bam Luque MD [facility] March 23, 2016 Prescription Bam Luque MD [facility] March 25, 2016 Call back Bam Luque MD [facility] March 27, 2016 Problems Problem Type [...] chronic nonalcoholic liver disease 571.8 Active Problem Acute gouty arthropathy 274.01 Jun 23, 2012 Active Problem Nonspecific urethritis 099.40 Jun 04, 2012 Active Problem Essential hypertension, benign 401.1 Active Problem Pain in soft tissues of limb 729.5 Active Problem Night sweats (Generalized hyperhidrosis) 780.8 Active Problem Mixed hyperlipidemia 272.2 Active Social History Social History Element Qualifiers Date Reported Supplements . Do you use supplements No March 25, 2016 Tobacco Use: . Are you a: former smoker quit 11/2013March 25, 2016 Caffeine intake? . Status: Yes, What type: Soft Drinks Redbull (1 a day) March 25, 2016 Do you drink alcohol? . Status: No March 25, 2016 Summary Purpose eClinicalWorks Submission
--- OUTSIDE RECORDS SUMMARY | 2018-10-22 09:31 | XMS REPORT ---
Author Author Bam Luque [facility] eClinicalWorks Address Unknown Phone Unavailable Care Team Providers Care Cat Dog Or Other Pet Groomer Name Role Phone Bam Luque Unavailable Encounters Encounter Location Date Labs Bam Luque MD [facility] March 23, 2016 Problems Problem Type Condition ICD-9 Code [...] . Do you use supplements No March 07, 2016 Tobacco Use: . Are you a: former smoker quit 11/2013March 07, 2016 Caffeine intake? . Status: Yes, What type: Soft Drinks Redbull (1 a day) March 07, 2016 Do you drink alcohol? . Status: No March 07, 2016 Summary Purpose eClinicalWorks Submission
--- OUTSIDE RECORDS SUMMARY | 2018-10-22 09:31 | XMS REPORT ---
Author Author Bam Luque [facility] eClinicalWorks Address Unknown Phone Unavailable Care Team Providers Care Research Food Technologist Name Role Phone Bam Luque Unavailable Encounters Encounter Location Date Blood pressure Bam Luque MD [facility] March 28, 2016 Labs Bam Luque MD [facility] March 23, 2016 Prescription Bam Luque MD [facility] March 25, 2016 Call back Bam Luque MD [facility] March 27, 2016 Problems Problem Type Condition [...]
--- OUTSIDE RECORDS SUMMARY | 2018-10-22 09:31 | XMS REPORT ---
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 Jul 13, 2012 Active Problem Toe pain 729.5 Sep 08, 2013 Active Problem Acute gouty arthropathy 274.01 Jun 23, 2012 Active Problem Nonspecific urethritis 099.40 Jun 04, 2012 Active Problem Annual Physical (Routine general medical examination at health care facility) V70.0 Jun 29, 2012 Active Problem Fracture of one or more phalanges of foot 826 Sep 08, 2013 Active Problem Night sweats (Generalized hyperhidrosis) 780.8 April 18, 2014 Active Problem Essential hypertension, benign 401.1 March 02, 2014 Active Problem ADD (Attention 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 mention of hyperactivity) 314.00 Jun 29, 2012 Active Problem Acute gouty arthropathy 274.01 Active Problem Hyperglycemia (Other abnormal blood chemistry) 790.6 Jul 13, 2012 Active Problem Tinea pedis B35.3 Active Problem Nonspecific abnormal results of liver function study 794.8 Jul 13, 2012 Active Problem Onychomycosis B35.1 Active Problem Fatty liver K76.0 Active Problem Abnormal liver enzymes R74.8 Active Problem Obesity (BMI 35.0-39.9 without comorbidity) E66.9 Active Problem Obesity E66.9 Active Problem Mixed hyperlipidemia 272.2 Active Problem Mixed hyperlipidemia 272.2 February 25, 2013 Active Problem Mixed hyperlipidemia E78.2 Active Problem Other enthesopathy of knee 726.69 Jul 13, 2012 Active Problem Hyperlipidemia E78.5 Active Problem Hypertension I10 Active Problem Obesity (BMI 35.0-39.9 without comorbidity) E66.01 Active Problem Gout M10.9 Active Problem Rhomboid muscle pain 729.1 Jul 25, 2013 Active Problem ADD (Attention 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 mention of hyperactivity) 314.00 Active Problem Pain in joints 719.49 Jun 23, 2012 Active Problem Essential hypertension, benign 401.1 Active Problem Extreme obesity 278.01 April 03, 2014 Active Problem 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
--- OUTSIDE RECORDS SUMMARY | 2018-10-22 09:31 | XMS REPORT ---
Author Author Bam Luque [facility] eClinicalWorks Address Unknown Phone Unavailable Care Team Providers Care Gis Programmer Name Role Phone Bam Luque Unavailable Encounters Encounter Location Date Labs Bam Luque MD [facility] March 23, 2016 Prescription Bam Luque MD [facility] March 25, 2016 Problems Problem Type Condition ICD-9 Code [...] Start Date End Date Status Dosage Lisinopril [facility] [address]-66 10 mg Orally Once a day Aug [...]
--- OUTSIDE RECORDS SUMMARY | 2018-10-22 09:31 | XMS REPORT ---
Author Author Bam Luque Organization eClinicalWorks Address Unknown Phone Unavailable Care Team Providers Care Supervisor Quilting Name Role Phone Bam Luque CP Unavailable [...] BMI >30 (Morbid obesity) 278.01 Active Medications No Known Medications Results No Known Results Summary Purpose eClinicalWorks Submission
--- OUTSIDE RECORDS SUMMARY | 2018-10-22 09:31 | XMS REPORT ---
Author Author Bam Luque [facility] eClinicalWorks Address Unknown Phone Unavailable Care Team Providers Care Senior Director Of [employer] Name Role Phone Bam Luque CP Unavailable [...] Date End Date Status Dosage Crestor [facility] [id number] 40 mg Orally Once a day Jul 17, 2016 Active 1 tablet Zetia [facility] [id number] 10 mg Orally Once a day February 10, 2017 Active 1 tablet Results No Known Results Summary Purpose eClinicalWorks Submission
--- OUTSIDE RECORDS SUMMARY | 2018-10-22 09:31 | XMS REPORT ---
Author Author Bam Luque eClinicalWorks Address Unknown Phone Unavailable Care Team Providers Care Welding Machine Operator Thermit Name Role Phone Bam Luque Unavailable Encounters Encounter Location Date Blood pressure Bam Luque MD [facility] March 28, 2016 Follow up labs Bam Luque MD [facility] March 25, 2016 Other Bam Luque MD [facility] April 16, 2016 Labs Bam Luque MD [facility] March 23, 2016 Prescription Bam Luque MD [facility] March 25, 2016 Call back Bam Luque MD [facility] March 27, 2016 Problems Problem Type Condition [...]
--- OUTSIDE RECORDS SUMMARY | 2018-10-22 09:32 | XMS REPORT ---
Author Author Bam Luque eClinicalWorks Address Unknown Phone Unavailable Care Team Providers Care Dry Kiln Burner Name Role Phone Bam Luque CP Unavailable Encounters Encounter Location Date Blood pressure Bam Luque MD [facility] March 28, 2016 Follow up labs Bam Luque MD [facility] March 25, 2016 Other Bam Luque MD [facility] April 16, 2016 Gout flare-up Bam Luque MD [facility] March 07, 2016 Labs Bam Luque MD [facility] March 23, 2016 Prescription Bam Luque MD [facility] March 25, 2016 Call back Bam Luque MD [facility] March 27, 2016 Refill Bam Luque MD [facility] May 13, 2016 Problems Problem Type Condition ICD-9 Code [...] Start Date End Date Status Dosage Lisinopril [facility] [address]-48 10 mg Orally Once a day Aug [...]
--- OUTSIDE RECORDS SUMMARY | 2018-10-22 09:32 | XMS REPORT ---
Author Author Bam Luque eClinicalWorks Address Unknown Phone Unavailable Care Team Providers Care Oil Field Equipment Mechanic Supervisor Name Role Phone Bam Luque Unavailable Allergies, Adverse Reactions, Alerts Substance Reaction Event Type N.K.D.A. Info Not Available Non Drug Allergy Encounters Encounter Location Date Blood pressure Bam Luque MD [facility] March 28, 2016 Follow up labs Bam Luque MD [facility] March 25, [address] [facility] April 16, 2016 Gout flare-up Bam Luque MD [facility] March 07, [address] [facility] March 23, [address] [facility] March 25, 2016 Call back Bam Luque MD [facility] March 27, [address] [facility] May 13, 2016 follow up labs Bam Luque MD [facility] Jul 17, 2016 Problems Problem Type Condition ICD-9 Code Onset Dates Condition Status Problem Fracture of one or more phalanges of foot 826 Sep 08, 2013 Active Problem Toe pain 729.5 Sep 08, 2013 Active Problem Pain in joints 719.49 Jun 23, 2012 Active Problem Rhomboid muscle pain 729.1 Jul 25, 2013 Active Problem Mixed hyperlipidemia 272.2 February 25, [...] without mention of hyperactivity) 314.00 Active Problem Left knee pain 719.46 Jul 13, 2012 Active Problem Acute gouty arthropathy 274.01 Active Problem Tinea pedis B35.3 Active Problem Hyperlipidemia E78.5 Active Problem Gout M10.9 Active Problem Obesity (BMI 35.0-39.9 without comorbidity) E66.01 Active Problem Acute gouty arthropathy 274.01 Jun 23, 2012 Active Problem Annual Physical (Routine general medical examination at health care facility) V70.0 Jun 29, 2012 Active Assessment Obesity E66.9 Active Problem Obesity E66.9 Active Problem ADD (Attention 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 mention of hyperactivity) 314.00 Jun 29, 2012 Active Problem Fatty liver K76.0 Active Problem Onychomycosis B35.1 Active Problem Hypertension I10 Active Problem Abnormal liver enzymes R74.8 Active Problem Extreme obesity 278.01 April 03, 2014 Active Problem Other chronic nonalcoholic liver disease 571.8 Active Problem Essential hypertension, benign 401.1 March 02, 2014 Active Problem Night sweats (Generalized hyperhidrosis) 780.8 Active Assessment Hypertension I10 Active Problem Nonspecific urethritis 099.40 Jun 04, 2012 Active Problem Night sweats (Generalized hyperhidrosis) 780.8 April 18, 2014 Active Problem Pain in joint, multiple sites 719.49 Active Assessment Abnormal liver enzymes R74.8 Active Problem Pain in soft tissues of limb 729.5 Active Assessment Hyperlipidemia E78.5 Active Problem 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 Problem Mixed hyperlipidemia 272.2 Active Problem Essential hypertension, benign 401.1 Active Medications Medication Code System Code Instructions Start Date End Date Status Dosage Crestor [facility] [address]-57 20 mg Orally Once a day March 25, 2016 Jul 03, 2016 Inactive 1 tablet Lisinopril [facility] [address]-81 10 mg Orally Once a day Aug 10, 2015 Jul 03, 2016 Active 1 tablet Crestor [facility] [address]-10 40 mg Orally Once a day Jul 17, 2016 Active 1 tablet Vimovo [facility] [address]-46 500-20 MG by mouth Twice a day with food for joint pain Jun 20, 2016 Active 1 tablet Uloric [facility] [address]-49 80 mg by mouth Once a day with food Active 1 tablet Social History Social History Element Qualifiers Date Reported Supplements . Do you use supplements No Jul 17, 2016 Tobacco Use: . Are you a: former smoker quit 11/2013Jul 17, 2016 Caffeine intake? . Status: Yes, What type: coffee or redbull (1 a day) Jul 17, 2016 Do you exercise? . Answer: No Jul 17, 2016 Do you drink alcohol? . Status: Yes, Type: beer, wine, Frequency sometimes he drinks ~ 6 beers per week, sometime more and there are times when he goes weeks without drinking anything Jul 17, 2016 Family history Qualifier Description Comment Date Reported Maternal Grandmother alive Comment not available Jul 17, 2016 Paternal Grandmother bone cancer Jul 17, 2016 Siblings Comment not available Jul 17, 2016 Maternal Grandfather alive Comment not available Jul 17, 2016 Children Comment not available Jul 17, 2016 Father colon cancer Jul 17, 2016 Paternal Grandfather Comment not available Jul 17, 2016 Mother alive Comment not available Jul 17, 2016 Other: lung cancer Jul 17, 2016 Vital Signs Date/Time: Jul 17, 2016 Weight 236.8 lbs Height 68 in Temperature 97.8 F Cardiac Monitoring Heart Rate 92 /min Immunizations Vaccine Administration Date Afluria Influenza (whole) (inactive) Jul 17, 2016 Summary Purpose eClinicalWorks Submission
--- OUTSIDE RECORDS SUMMARY | 2018-10-22 09:32 | XMS REPORT ---
Author Author Bam Luque eClinicalWorks Address Unknown Phone Unavailable Care Team Providers Care Smoked Meat Preparer Name Role Phone Bam Luque Unavailable Allergies, Adverse Reactions, Alerts Substance Reaction Event Type N.K.D.A. Info Not Available Non Drug Allergy Encounters Encounter Location Date Blood pressure Bam Luque MD [facility] March 28, 2016 Follow up labs Bam Luque MD [facility] March 25, 2016 Other Bam Luque MD [facility] April 16, 2016 Gout flare-up Bam Luque MD [facility] March 07, 2016 Labs Bam Luque MD [facility] March 23, 2016 Labs Bam Luque MD [facility] Oct 08, 2016 Prescription Bam Luque MD [facility] March 25, 2016 follow up labs Bam Luque MD [facility] Oct 20, 2016 Call back Bam Luque MD [facility] March 27, 2016 Blood pressure flow sheet Bam Luque MD [facility] 2016 Refill Bam Luque MD [facility] May 13, 2016 follow up labs Bam Luque MD [facility] Jul 17, 2016 Problems Problem Type Condition ICD-9 Code Onset Dates Condition Status Problem Mixed [...] urethritis 099.40 Jun 04, 2012 Active Assessment Essential hypertension I10 Active Problem Obesity (BMI 35.0-39.9 without comorbidity) E66.01 Active Assessment Abnormal liver enzymes R74.8 Active Problem Hypertension I10 Active Assessment Obesity (BMI 35.0-39.9 without comorbidity) E66.9 Active Problem Obesity E66.9 Active Assessment Umbilical hernia without obstruction and without gangrene K42.9 Active Problem Gout M10.9 Active Problem Fracture [...] Date End Date Status Dosage Crestor [facility] [address]-08 40 mg Orally Once a day Jul 17, 2016 Active 1 tablet Uloric [facility] [address]-97 80 mg by mouth Once a day with food Active 1 tablet [facility] [address]-44 10 MG Orally Once a day Aug 10, 2015 Active 1 tablet V[facility] [address]-97 500-20 MG by mouth Twice a day with food for joint pain Jun 20, 2016 Active 1 tablet prn Social History Social History Element Qualifiers Date Reported Supplements . Do you use supplements No Oct 20, 2016 Tobacco Use: . Are you a: former smoker quit 11/2013Oct 20, 2016 Caffeine intake? . Status: Yes, What type: coffee or redbull (1 a day) Oct 20, 2016 Do you exercise? . Answer: Yes, Type: cardio Oct 20, 2016 Do you drink alcohol? . Status: Yes, Type: beer, wine, Frequency sometimes he drinks ~ 6 beers per week, sometime more and there are times when he goes weeks without drinking anything Oct 20, 2016 Vital Signs Date/Time: Oct 20, 2016 Weight 241 lbs Height 68 in Temperature 97.5 F Cardiac Monitoring Heart Rate 79 /min Summary Purpose eClinicalWorks Submission
--- OUTSIDE RECORDS SUMMARY | 2018-10-22 09:32 | XMS REPORT ---
Author Author Bam Luque eClinicalWorks Address Unknown Phone Unavailable Care Team Providers Care Hand Miter Operator Name Role Phone Bam Luque CP Unavailable Encounters Encounter Location Date Blood pressure Bam Luque MD [facility] March 28, 2016 Follow up labs Bam Luque MD [facility] March 25, 2016 Other Bam Luque MD [facility] April 16, 2016 Gout flare-up Bam Luque MD [facility] March 07, 2016 Labs Bam Luque MD [facility] March 23, 2016 Prescription Bam Luque MD [facility] March 25, 2016 Call back Bam Luque MD [facility] March 27, 2016 Blood pressure flow sheet Bam Luque MD [facility] 2016 Refill Bam Luque MD [facility] May 13, 2016 follow up labs Bam Luque MD [facility] Jul 17, 2016 Problems Problem Type [...] facility) V70.0 Jun 29, 2012 Active Problem Obesity E66.9 Active Problem ADD [...] in joint, multiple sites 719.49 Active Problem Pain in soft tissues of limb 729.5 Active Problem 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
--- OUTSIDE RECORDS SUMMARY | 2018-10-22 09:32 | XMS REPORT ---
Author Author Bam Luque eClinicalWorks Address Unknown Phone Unavailable Care Team Providers Care Recycling Tech Name Role Phone Bam Luque CP Unavailable Encounters Encounter Location Date Blood pressure Bam Luque MD [facility] March 28, 2016 Follow up labs Bam Luque MD [facility] March 25, 2016 Other Bam Luque MD [facility] April 16, 2016 Gout flare-up Bam Luque MD [facility] March 07, 2016 Labs Bam Luque MD [facility] March 23, 2016 Labs Bam Luque MD [facility] Oct 08, 2016 Prescription Bam Luque MD [facility] March 25, 2016 Call back Bam Luque MD [facility] March 27, 2016 Blood pressure flow sheet Bam Luque MD [facility] 2016 Refill Bam Luque MD [facility] May 13, 2016 follow up labs Bam Luque MD [facility] Jul 17, 2016 Problems Problem Type [...] Night sweats (Generalized hyperhidrosis) 780.8 Active Problem Nonspecific urethritis 099.40 Jun 04, 2012 Active Problem Night sweats (Generalized hyperhidrosis) 780.8 April 18, 2014 Active Problem Pain in joint, multiple sites 719.49 Active Problem Pain in soft tissues of limb 729.5 Active Problem 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
--- OUTSIDE RECORDS SUMMARY | 2018-10-22 09:32 | XMS REPORT ---
Author Author Bam Luque eClinicalWorks Address Unknown Phone Unavailable Care Team Providers Care Client Finance Analyst Name Role Phone Bam Luque CP Unavailable Encounters Encounter Location Date Blood pressure Bam Luque MD [facility] March 28, 2016 Follow up labs Bam Luque MD [facility] March 25, 2016 Other Bam Luque MD [facility] April 16, 2016 Gout flare-up Bam Luque MD [facility] March 07, 2016 Labs Bam Luque MD [facility] March 23, 2016 Prescription Bam Luque MD [facility] March 25, 2016 Call back Bam Luque MD [facility] March 27, 2016 Blood pressure flow sheet Bam Luque MD [facility] 2016 Refill Bam Luque MD [facility] May 13, 2016 follow up labs Bam Luque MD [facility] Jul 17, 2016 prescription Bam Luque MD [facility] Oct 21, 2016 Labs Bam Luque MD [facility] Oct 08, 2016 follow up labs Bam Luque MD [facility] Oct 20, 2016 Problems Problem Type Condition ICD-9 Code [...] Date End Date Status Dosage Crestor [facility] [address]-16 40 mg Orally Once a day Jul 17, 2016 Active 1 tablet Lisinopril [facility] [address]-20 10 MG Orally Once a day Aug 10, 2015 Active 1 tablet Uloric [facility] [address]-47 80 mg by mouth Once a day with food Nov 21, 2016 Active 1 tablet Social History Social [...] weeks without drinking anything Oct 20, 2016 Summary Purpose eClinicalWorks Submission
--- NOTE | 2018-10-22 12:33 | Operative Report ---
DATE OF PROCEDURE: October 22, 2018 PREOPERATIVE DIAGNOSIS: Incarcerated umbilical hernia. POSTOPERATIVE DIAGNOSIS: Incarcerated umbilical hernia. OPERATION PERFORMED: Repair of incarcerated umbilical hernia with medium Ventralex patch. ANESTHESIA: General. COMPLICATIONS: None. ESTIMATED BLOOD LOSS: Minimal. DESCRIPTION OF PROCEDURE: With the patient lying in bed in the supine position under good general anesthesia, the abdomen was prepped with Betadine solution and draped in the usual manner. A semilunar subumbilical incision was made. It was carried down through the subcutaneous tissue. Hernia sac was identified and then slowly and carefully encircled all the way around with normal fascia. The umbilicus was then detached from the hernia sac. The umbilical skin was rather thinned out from the large incarcerated hernia, but it appeared nonetheless to be viable. The hernia sac was then opened, and there was a good part of omentum stuck within. All of the adhesions were taken down. We managed to reduce the omentum back to the intra-abdominal cavity. The excess of the hernia sac was resected. After this was done, a medium size Ventralex patch was then placed intra-abdominally. The defect was then closed transversely using interrupted sutures of 0 Ethibond anchoring the mesh with the sutures. The whole area was then thoroughly irrigated. Perfect hemostasis was ascertained. Fascia was then infiltrated with 0.25% Marcaine solution. The umbilicus was then tacked back down to the midline fascia with 3-0 Vicryl. The subcutaneous tissue was approximated with 3-0 Vicryl and the skin was closed with interrupted vertical mattress sutures of 3-0 silk. A dressing was applied. The sponge, lap and needle count was correct. The patient tolerated the procedure well and returned to the recovery room in stable condition. Job#: [id number] NM
[2018-10-22 12:50] VITALS: BP 120/77
== END | disposition home or self-care (01) ==
LOC: OR 09:26
PROVIDERS: ATTEND Surgery
DX: K42.0 Umbilical hernia with obstruction, without gangrene (principal); I10 Essential (primary) hypertension; Z01.810 Encounter for preprocedural cardiovascular examination; Z01.812 Encounter for preprocedural laboratory examination
CPT/HCPCS: 36415; 49587; 85025; 93005; C1781; J1100; J2001; J2250; J2270; J2405; J2704